=== PATIENT | female | born 1980 | race Caucasian/White ===

== ENCOUNTER 2017-06-09 12:32 | Emergency (ER) | payer MEDICAID, OTHER ==
[2017-06-09 12:32] VITALS: BMI 26.6
[2017-06-09 12:44] VITALS: PULSE 78; TEMP 98.7
--- NOTE | 2017-06-09 13:22 | RAD ---
PROCEDURE: Right Knee Radiographs. HISTORY: pain COMPARISON: None. FINDINGS: BONES: No evidence of acute displaced fracture nor dislocation. The osseous structures appear intact. JOINTS: Degenerative osteoarthritis most notably affecting lateral and patellofemoral compartments. There is mild lateral joint space narrowing with subchondral sclerosis and prominent marginal lateral osteophyte formation. Spurring of the tibial spines. Small posterior patellar osteophytes also present JOINT EFFUSION: . Small suprapatellar joint effusion noted. OTHER FINDINGS: None. IMPRESSION: No acute fractures. DJD with small suprapatellar joint effusion as detailed above
--- NOTE | 2017-06-09 13:34 | C.PDOC ---
History Of Present Illness 37 yr old female with PMHx of right knee arthritis , s/p orthroscopic surgery, presents to the ER with complaints of right knee pain exacerbation for past 1 week. Patient admits to walking a lot recently. Otherwise, patient denied known recent trauma, injury, denies skin changes, deformity, swelling of Right knee, denies weakness, sensory or vascular deficits to Right leg, denies calf pain. Ambulate to Ed, favoring Right knee. Time Seen by Provider: 06/09/17 12:55 Chief Complaint (Nursing): Lower Extremity Problem/Injury History Per: Patient History/Exam Limitations: no limitations Onset/Duration Of Symptoms: Days (1 week) Current Symptoms Are (Timing): Still Present Past Medical History Reviewed: Historical Data, Nursing Documentation, Vital Signs Vital Signs: Last Vital Signs Temp 98.7 F 06/09/17 12:43 Pulse 78 06/09/17 12:43 Resp 18 06/09/17 12:43 BP 151/107 H 06/09/17 12:43 Pulse Ox 100 06/09/17 13:53 - Medical History PMH: Anemia - [facility] Procedures INJECT/INFUSE ELECTROLYT (10/21/12) VENOUS PUNCTURE NEC (07/19/14) Family History: States: No Known Family Hx - Social History Hx Tobacco Use: No Hx Alcohol Use: Yes Hx Substance Use: No - Immunization History Hx Tetanus Toxoid Vaccination: No Hx Influenza Vaccination: No Hx Pneumococcal Vaccination: No Review Of Systems Except As Marked, All Systems Reviewed And Found Negative. Musculoskeletal: Positive for: Other ((+) Right knee pain). Negative for: Leg Pain, Foot Pain Neurological: Negative for: Weakness, Numbness Physical Exam - Physical Exam Appears: Well, Non-toxic, No Acute Distress Skin: Warm, Dry, No Rash, No Ecchymosis Extremity: Normal ROM (mild discomfort to Right knee flexion due to pain.), Tenderness (Right knee, over the anterior aspect.), No Pedal Edema, No Calf Tenderness (B/L), No Deformity, No Swelling Pulses: Left Dorsalis Pedis: Normal, Right Dorsalis Pedis: Normal Neurological/Psych: Oriented x3, Normal Speech, Normal Motor, Normal Sensation, Normal Reflexes ED Course And Treatment O2 Sat by Pulse Oximetry: 100 (RA) Pulse Ox Interpretation: Normal - Other Rad Right knee X-Ray: Read By Radiologist Interpretation: Accession No. : [id number]. Patient Name / ID : REGAN ABRAMS / [id number]. Exam Date : 06/09/2017 13:09:39 ( Approved ). Study Comment : Sex / Age : F / 37Y. Creator : Niall Chandler MD. Dictator : Lacquer Maker : Sand Caster Apprentice : Niall Chandler MD. Approver2 : Report Date : 13:20:09. My Comment : . PROCEDURE: Right Knee Radiographs. HISTORY: pain. COMPARISON: None. FINDINGS: BONES: No evidence of acute displaced fracture nor dislocation. The osseous structures appear intact. JOINTS: Degenerative osteoarthritis most notably affecting lateral and patellofemoral compartments. There is mild lateral joint space narrowing with subchondral sclerosis and prominent marginal lateral osteophyte formation. Spurring of the tibial spines. Small posterior patellar osteophytes also present. JOINT EFFUSION: . Small suprapatellar joint effusion noted. OTHER FINDINGS: None. IMPRESSION: No acute fractures. DJD with small suprapatellar joint effusion as detailed above Progress Note: On re-evaluation, pt is afebrile, hemodynamicaly stable. Non- toxic. Right knee: exam c/w knee arthralgia, no deformity, no edema, no neurovascular deficits, no evidence of septic joint. Xray review and c/w DJD, mod. Knee immobilizer applied to Right knee. Pt advised and ref. to f/u with Ortho in 2-3 days for re-eavl. return if any new changes. Medical Decision Making Medical Decision Making: PLAN: * X-Ray - Right Knee * Tramadol PO * Prednisone PO Disposition Counseled Patient/Family Regarding: Studies Performed, Diagnosis, Need For Followup, Rx Given - Disposition Referrals: [facility] [place] [Outside] [facility] [Outside] [facility] [Outside] Disposition: HOME/ ROUTINE Disposition Time: 13:29 Condition: STABLE Additional Instructions: Knee immobilizer for 1-2 weeks Take medication as prescribed Follow up with Orthopedist in 2-3 days for re-evaluation. Return to ED if any worsening or new changes. 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 - Scribe Statement The provider has reviewed the documentation as recorded by the Scribe Akua Brewer All medical record entries made by the Coreenibchaitanya were at my direction and personally dictated by me. I have reviewed the chart and agree that the record accurately reflects my personal performance of the history, physical exam, medical decision making, and the department course for this patient. I have also personally directed, reviewed, and agree with the discharge instructions and disposition.
[2017-06-09 14:06] VITALS: BP 123/65; RESP 16
[2017-06-09 14:08] VITALS: O2SAT 100
== END 2017-06-09 14:06 | disposition home or self-care (01) ==
LOC: C.ER 12:32
DX: M25.561 Pain in right knee (principal)

== ENCOUNTER 2017-09-18 19:06 | Emergency (ER) | payer MEDICAID, OTHER ==
[2017-09-18 19:06] VITALS: BMI 26.6
[2017-09-18 19:34] VITALS: BP 130/91; PULSE 82; RESP 20; TEMP 98.7; O2SAT 100
--- NOTE | 2017-09-18 21:28 | C.PDOC ---
History Of Present Illness 37 yr old female presents to the ER with complaints of cough and chest congestion for the past 2 days, associated with body aches, chills and subjective fever. Patient states she has tired OTC medication but no relief. Denies chest pain, SOB, nausea, vomiting, abdominal pain, headache, weakness or numbness. Time Seen by Provider: 09/18/17 19:38 Chief Complaint (Nursing): Cough, Cold, Congestion History Per: Patient History/Exam Limitations: no limitations Onset/Duration Of Symptoms: Days (2) Past Medical History Reviewed: Historical Data, Nursing Documentation, Vital Signs Vital Signs: Last Vital Signs Temp 98.7 F 09/18/17 19:30 Pulse 82 09/18/17 19:30 Resp 20 09/18/17 19:30 BP 130/91 H 09/18/17 19:30 Pulse Ox 100 09/18/17 21:37 - Medical History PMH: Anemia - [facility] Procedures INJECT/INFUSE ELECTROLYT (10/21/12) VENOUS PUNCTURE NEC (07/19/14) Family History: States: No Known Family Hx - Social History Hx Tobacco Use: No Hx Alcohol Use: Yes Hx Substance Use: No - Immunization History Hx Tetanus Toxoid Vaccination: No Hx Influenza Vaccination: No Hx Pneumococcal Vaccination: No Review Of Systems Except As Marked, All Systems Reviewed And Found Negative. Constitutional: Positive for: Fever (subjective), Chills, Other ((+) body aches) Cardiovascular: Positive for: Other ((+) chest congestion). Negative for: Chest Pain Respiratory: Positive for: Cough. Negative for: Shortness of Breath Gastrointestinal: Negative for: Nausea, Vomiting, Abdominal Pain Neurological: Negative for: Weakness, Numbness, Headache Physical Exam - Physical Exam Appears: Non-toxic, No Acute Distress Skin: Warm, Dry, No Rash Head: Atraumatic, Normacephalic Eye(s): bilateral: Normal Inspection, PERRL, EOMI Oral Mucosa: Moist Neck: Normal, Normal ROM, Supple Cardiovascular: Rhythm Regular, No Murmur Respiratory: Normal Breath Sounds, No Rales, No Rhonchi, No Stridor, No Wheezing Extremity: Normal ROM, No Swelling Neurological/Psych: Oriented x3, Normal Speech, Normal Motor ED Course And Treatment O2 Sat by Pulse Oximetry: 100 (RA) Pulse Ox Interpretation: Normal Progress Note: Patient has persistent dry cough in ER. Patient is treated with saline nebulizer, phenergan with codeine and reports some improvement. On reevaluation, patient reports improvement of symptoms. Patient is advised to follow up with PMD for further evaluation.Return precautions discussed Medical Decision Making Medical Decision Making: PLAN: * CXR * Motrin PO * Phenergan PO Disposition Counseled Patient/Family Regarding: Diagnosis, Need For Followup, Rx Given - Disposition Disposition: HOME/ ROUTINE Disposition Time: 21:24 Condition: STABLE Additional Instructions: Please follow up with PMD Take meds as directed Increase PO fluids Return to ER if worse Prescriptions: Benzonatate [Tessalon Perles] 100 mg PO TID #20 sgl Cetirizine HCl [Zyrtec] 10 mg PO DAILY #20 capsule Ibuprofen [Motrin] 600 mg PO Q6H #20 tab Instructions: Upper Respiratory Infection (ED) Forms: [employer] (Nepalese) - Clinical Impression Clinical Impression: Upper respiratory infection - 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 - Scribe Statement The provider has reviewed the documentation as recorded by the Scribe Akua Brewer All medical record entries made by the Scribe were at my direction and personally dictated by me. I have reviewed the chart and agree that the record accurately reflects my personal performance of the history, physical exam, medical decision making, and the department course for this patient. I have also personally directed, reviewed, and agree with the discharge instructions and disposition.
[2017-09-18] MEDS ORDERED: Promethazine/Cod 6.25mg-10mg/5ml Syr UD PO STA (21:29)
[2017-09-18] MEDS ORDERED: Promethazine/Cod 6.25mg-10mg/5ml Syr UD ONE (21:37)
--- NOTE | 2017-09-19 10:02 | RAD ---
Chest x-ray two views History: Cough congestion. Comparison: None available. Findings: No focal infiltrate or effusion. Heart size normal limits. Impression: No focal infiltrate or effusion.
== END 2017-09-18 21:42 | disposition home or self-care (01) ==
LOC: C.ER 19:06
DX: J06.9 Acute upper respiratory infection, unspecified (principal)